=== PATIENT | female | born 1960 | race Caucasian/White ===

== ENCOUNTER → 2018-07-19 | Outpatient (CLI) | payer OTHER ==
[2014-03-18 10:29] VITALS: BP 132/84
[~2018-07-19] MED LIST: ASCO-78 PO; ASPI325T8 PO; ATEN25TA PO; CHOL400C2 PO; CINN500C2 PO; CIPR500T94 PO; CLOP75TA PO; CRAN200C2 PO; CRESTOR10 MG PO; DEXT15CA3 PO; FURO-69 PO; INSU100V13 SQ; INSU100V31 SQ; LISI2.5T PO; METR500T PO; NIAC500T9 PO; OMEG300C PO; OXYB5TAB PO; PSYL0.5215 PO; REGADENOSON 0.4 MG/5 ML DISP.SYRIN. IV ONE; VITA100T5 PO; [UNRECOGNIZED DRUG - OTHER] PO
--- NOTE | 2018-07-19 11:14 | CARD ---
MR#: [id number] Date of Study: 07/19/2018 Ordering Physician: CRISTI ORANTES, Referring Physician: CRISTI ORANTES Tech: Cheyenne Valle RDCS APPROVED REPORT EXAM: Two-dimensional and M-mode echocardiogram with Doppler and color Doppler. Other Information Quality : Fair INDICATION Cardiac Disease: CAD RISK FACTORS Smoking 2D DIMENSIONS RVDd2.3 (2.9-3.5cm)Left Atrium(2D)3.5 (1.6-4.0cm) IVSd1.0 (0.7-1.1cm)Aortic Root(2D)2.6 (2.0-3.7cm) LVDd4.7 (3.9-5.9cm)LVOT Diameter2.0 (1.8-2.4cm) PWd0.9 (0.7-1.1cm)LVDs2.7 (2.5-4.0cm) FS (%) 30.0 %SV76.0 ml LVEF(%)60.0 (>50%) Aortic Valve AoV Peak Vlad.134.4cm/sAoV VTI30.8cm AO Peak GR.7.2mmHgLVOT Peak Vlad.124.4cm/s LVOT VTI 27.62cmAO Mean GR.4mmHg JAMI (VMAX)2.56ne8BSL (VTI)2.87cm2 Mitral Valve MV E Jnzrffdf91.1cm/sMV DECEL FSDG687qy MV A Chzajakc970.7cm/sMV NTT10dc E/A Ratio0.9MVA (PHT)3.14cm2 TDI E/Lateral E'13.9E/Medial E'13.1 Tricuspid Valve TR P. Vhbzsnqc201pj/sRAP EMPHTOUG5fgNr TR Peak Gr.68haAdUQXZ91skEs Pulmonary Vein S1 Bwmlhakb01.0cm/sD2 Fpzdrjwk43.6cm/s LEFT VENTRICLE The left ventricle is normal size. There is normal left ventricular wall thickness. The left ventricu lar systolic function is normal and the ejection fraction is within normal range. The left ventricula r ejection fraction is 55-60%. There is normal LV segmental wall motion. Transmitral Doppler flow pat tern is Grade I-abnormal relaxation pattern. RIGHT VENTRICLE The right ventricle is normal size. The right ventricular systolic function is normal. ATRIA The left atrium size is normal. The right atrium size is normal. The interatrial septum is intact wit h no evidence for an atrial septal defect or patent foramen ovale as noted on 2-D or Doppler imaging. AORTIC VALVE The aortic valve is calcified but opens well. Doppler and Color Flow revealed no significant aortic r egurgitation. There is no significant aortic valvular stenosis. MITRAL VALVE The mitral valve is calcified but opens well. Mitral annular calcification is mild. There is no evide nce of mitral valve prolapse. There is no mitral valve stenosis. Doppler and Color-flow revealed trac e to mild mitral regurgitation. TRICUSPID VALVE The tricuspid valve is normal in structure and function. Doppler and Color Flow revealed trace tricus pid regurgitation. The PA pressure was estimated at 26 mmHg. There is no tricuspid valve prolapse or vegetation. There is no tricuspid valve stenosis. PULMONIC VALVE The pulmonic valve is not well visualized. Doppler and Color Flow revealed no pulmonic valvular regur gitation. There is no pulmonic valvular stenosis. GREAT VESSELS The aortic root is normal in size. The ascending aorta is not well seen. The IVC is normal in size an d collapses >50% with inspiration. PERICARDIAL EFFUSION There is no evidence of significant pericardial effusion. Critical Notification Critical Value: No <Conclusion> The left ventricle is normal size. The left ventricular systolic function is normal and the ejection fraction is within normal range. The left ventricular ejection fraction is 55-60%. There is normal left ventricular wall thickness. There is no significant aortic valvular stenosis. Doppler and Color Flow revealed no significant aortic regurgitation. Doppler and Color-flow revealed trace to mild mitral regurgitation. Doppler and Color Flow revealed trace tricuspid regurgitation. The PA pressure was estimated at 26 mmHg. Signed by : Ron Garduno MD Electronically Approved : 07/19/2018 11:14:14
--- NOTE | 2018-07-19 12:17 | RAD ---
MR#: [id number] Date of Study: 07/19/2018 Ordering Physician: CRISTI ORANTES Referring Physician: JYOTI CARTWRIGHT Tech: RT Dora Guerrero) (N) APPROVED REPORT Test Type: Pharmacological Stress Nurse/Tech: Aron BRAY Test Indications: CAD Cardiac History: DE in 2004 and 2010 with a total of 4 stents placed, HTN, See EMR Medications: ASA, See EMR Medical History: Renal Insf, Smoker for 40yrs, DM, See EMR Resting ECG: SR Resting Heart Rate: 69 bpm Resting Blood Pressure: 115/53mmHg Pretest Chest Pain: No chest pain Nurse/Tech Notes Lungs CTA, Heart tones regular Consent: The procedure was explained to the patient in lay terms. Informed consent was witnessed. Jamal eout was entered into [employer]. History and Stress Test performed by RT Dora Guerrero) (N) Pharm. Details Pharmacologic stress testing was performed using 0.4mg per 5ml of regadenoson given intravenously ove r 7-10 seconds. Stress Symptoms Dizziness POST EXERCISE Reason for Termination: Infusion complete Max HR: 95 bpm Max Blood Pressure: 102/37mmHg Blood Pressure response to exercise: Normal blood pressure response during stress. Chest Pain: No. Arrhythmia: No. ST Change: No. INTERPRETATION Stress EKG Conclusion: No evidence of stress induced EKG changes. Imaging Protocol IMAGE PROTOCOL: Rest Tc-99m/stress Tc-99m 1 day Rest: Stress: Viability: Radiopharm.Tc99m OhyitlcqwMw14k Sestamibi Dqkw53iRf 33mCi Duration 15min. 15min. Img Date 07/19/2018 07/19/2018 Inj-Img Qbhp62ndi. 60min. Rest Admin Site:IV - Left HandAdministrator:RT Dora Guerrero)(N) Stress Admin Site: IV - Left HandAdministrator: RT Dora Guerrero)(N) STRESS DATA End Diast. Vol.84.0mlAv. Heart Rate82.0bpm End Syst. Vol.17.0mlCO Index BSA0.0L/min Myocardial Ipyf749.0gEject. Wybjyjyf42.0% Stress Rates Pk. Fill Rate4.76EDV/secLVtime Pk. Fill 201.51msec Pk. Empty Rate4.74ESV/secLVtime Pk. Pctdp081.79msec 1/3 Pk. Fill1.53EDV/sec Stress Scores Regional WT0.00Summed WT2.00 Regional WM0.00Summed WM0.00 The rest and stress images show normal perfusion, normal contraction and thickening. LV Perf. Quant 17 Seg. SSS5.00 17 Seg. SRS5.00 17 Seg. SDS0.00 Stress Defect Extent (% LAD)14.40Rest Defect Extent (% LAD)18.10Rev. Defect Extent (% LAD)0.00 Stress Defect Extent (% LCX) 3.80Rest Defect Extent (% LCX)0.00Rev. Defect Extent (% LCX)0.00 Stress Defect Extent (% RCA)0.00Rest Defect Extent (% RCA)0.00Rev. Defect Extent (% RCA)0.00 Stress Defect Extent (% MARNIE)11.50Rest Defect Extent (% MARNIE)12.00Rev. Defect Extent (% MARNIE)0.00 Other Information Quality:Good Risk Assessment: Low Risk Conclusion 1. No evidence of EKG changes with stress testing. 2. Normal perfusion at stress/rest. There is a small fixed apical defect suggestive of prior infarct versus apical thinning. Correlate with history. No ischemia 3. Low risk study. 4. EF > 60%. Signed by : Nishant Sanchez, Electronically Approved : 07/19/2018 12:17:22
== END | disposition home or self-care (01) ==
LOC: ECHO 07:49
PROVIDERS: ATTEND Internal Medicine Cardiovascular Disease
DX: I08.0 Rheumatic disorders of both mitral and aortic valves (principal); I25.10 Atherosclerotic heart disease of native coronary artery without angina pectoris; I25.2 Old myocardial infarction; I10 Essential (primary) hypertension; E11.9 Type 2 diabetes mellitus without complications; R00.8 Other abnormalities of heart beat; Z87.891 Personal history of nicotine dependence
CPT/HCPCS: 78452; 93017; 93306; 96374; A9500; J2785

== ENCOUNTER 2018-12-28 09:11 | Emergency (ER) | payer OTHER ==
[~2018-12-28] VITALS: Ht 167.6 cm; Wt 81.6 kg
[~2018-12-28 09:11] MED LIST changes: -OXYB5TAB PO; +OXYB5TAB2 PO; -REGADENOSON 0.4 MG/5 ML DISP.SYRIN. IV ONE
--- NOTE | 2018-12-28 09:35 | PHYS DOC ---
Past Medical History Past Medical History: Diabetes-Type II, High Cholesterol, Hypertension, [place], Other Additional Past Medical Histor: narcolepsy, " have one kidney" Past Surgical History: Hysterectomy, Tonsillectomy, Other Additional Past Surgical Histo: 3 cardiac stents Alcohol Use: None Drug Use: None Adult General Chief Complaint Chief Complaint: BLOOD IN URINE [facility] HPI Patient is a 58-year-old female who presents to the emergency department for evaluation. She states that she has a large internal hemorrhoid, which has caused her to have some difficulty urinating at times. She states that she had been urinating at her normal state, until about 4 AM, she felt that she could not urinate, and then when she laid back down, "it all gushed out", stating that there was blood in urine that was coming from her urethra. She is fairly adamant that she is not having any vaginal bleeding=- she has had a hysterectomy. She does report some pressure and discomfort in her urethral area. She states that she had a traumatic injury to her urethra this past April when a catheter was placed. She has not been on any new medications. She does take Plavix, but no other anticoagulants. She denies any vomiting, bloody stools, dizziness or lightheadedness. Laying flat seems to worsen her symptoms. There are no alleviating factors to her symptoms. Review of Systems Review of Systems Constitutional: Denies fever or chills [] Eyes: Denies change in visual acuity, redness, or eye pain [] HENT: Denies nasal congestion or sore throat [] Respiratory: Denies cough or shortness of breath [] Cardiovascular:The patient denies any shortness of breath, chest pain, palpitations, or orthopnea [] GI: Denies nausea, vomiting, bloody stools or diarrhea [] : No additional information not addressed in HPI [] Musculoskeletal: Denies back pain or joint pain [] Integument: Denies rash or skin lesions [] Neurologic: Denies headache, focal weakness or sensory changes [] Endocrine: Denies polyuria or polydipsia [] All other systems were reviewed and found to be within normal limits, except as documented in this note. Current Medications Current Medications Current Medications Medications (Trade) Dose Ordered Sig/Saurav Start Time Stop Time Status Last Admin Dose Admin Ciprofloxacin/ Dextrose 200 ml @ 200 mls/hr 1X ONCE 12/28/18 12:00 12/28/18 12:59 DC 12/28/18 12:36 200 MLS/HR Info (CONTRAST GIVEN -- Rx MONITORING) 1 each PRN DAILY PRN 12/28/18 12:00 12/28/18 14:29 DC Iohexol (Omnipaque 300 Mg/ml) 75 ml 1X ONCE 12/28/18 12:00 12/28/18 12:01 DC 12/28/18 11:53 75 ML Sodium Chloride 1,000 ml @ 1,000 mls/hr 1X ONCE 12/28/18 12:00 12/28/18 12:59 DC 12/28/18 12:15 1,000 MLS/HR Allergies Allergies Allergies Coded Allergies Type Severity Reaction Last Updated Verified Sulfa (Sulfonamide Antibiotics) Allergy Severe hives, shortness of breath 03/15/14 No diphenhydramine Allergy Severe respiratory distress 03/15/14 No cephalexin Allergy Intermediate hives 03/15/14 No Physical Exam Physical Exam PHYSICAL EXAM: CONSTITUTIONAL: Well developed, well nourished HEAD: normocephalic, atraumatic EENT: PERRL, EOMI. Conjunctivae normal color, sclerae non-icteric; moist mucous membranes. NECK: Supple, non-tender; no meningismus. LUNGS: Lungs CTA, breathing even and unlabored. Normal air movement. HEART: Regular rate and rhythm, no murmur CHEST: No deformity; non-tender ABDOMEN: The abdomen is soft, there is fullness and tenderness to palpation in the suprapubic area, possibly suggestive of bladder distention, the remainder the abdomen is soft and non-tender, no masses or bruits. EXTREM: Normal ROM; no deformity, no calf tenderness. Normal pulses palpable in all extremities. There is no pedal edema. SKIN: No rash; no diaphoresis NEURO: Alert; normal speech and cognition; CN's grossly intact; strength grossly intact without focal deficit. BACK: No CVA TTP. . PSYCHIATRIC: Moderately anxious affect. GENITOURINARY: Normal external genitalia. The urethral meatus appears unremarkable, there is a small amount of reddish fluid, possibly black or bloody urine, in the vaginal introitus, without any obvious vaginal bleeding. Current Patient Data Vital Signs Vital Signs Date Time Temp Pulse Resp B/P (MAP) Pulse Ox O2 Delivery O2 Flow Rate FiO2 12/28/18 11:30 86 121/63 (82) 95 Room Air 12/28/18 09:24 97.9 24 97.9 Lab Values Laboratory Tests Test 12/28/18 10:30 White Blood Count 11.7 x10^3/uL (4.0-11.0) H Red Blood Count 4.32 x10^6/uL (3.50-5.40) Hemoglobin 13.5 g/dL (12.0-15.5) Hematocrit 39.6 % (36.0-47.0) Mean Corpuscular Volume 92 fL (79-100) Mean Corpuscular Hemoglobin 31 pg (25-35) Mean Corpuscular Hemoglobin Concent 34 g/dL (31-37) Red Cell Distribution Width 14.0 % (11.5-14.5) Platelet Count 203 x10^3/uL (140-400) Neutrophils (%) (Auto) 85 % (31-73) H Lymphocytes (%) (Auto) 10 % (24-48) L Monocytes (%) (Auto) 5 % (0-9) Eosinophils (%) (Auto) 0 % (0-3) Basophils (%) (Auto) 0 % (0-3) Neutrophils # (Auto) 9.9 x10^3/uL (1.8-7.7) H Lymphocytes # (Auto) 1.1 x10^3/uL (1.0-4.8) Monocytes # (Auto) 0.6 x10^3/uL (0.0-1.1) Eosinophils # (Auto) 0.0 x10^3/uL (0.0-0.7) Basophils # (Auto) 0.0 x10^3/uL (0.0-0.2) Prothrombin Time 13.7 SEC (11.7-14.0) Prothrombin Time INR 1.1 (0.8-1.1) Urine Collection Type U cath Urine Color Red Urine Clarity Turbid Urine pH 5.0 Urine Specific [place] 1.025 Urine Protein mg/dL (NEG-TRACE) Urine Glucose (UA) mg/dL (NEG) Urine Ketones (Stick) mg/dL (NEG) Urine Blood (NEG) Urine Nitrite (NEG) Urine Bilirubin (NEG) Urine Urobilinogen Dipstick mg/dL (0.2 mg/dL) Urine Leukocyte Esterase (NEG) Urine RBC Tntc /HPF (0-2) Urine WBC Tntc /HPF (0-4) Urine Bacteria Fobs /HPF (0-FEW) Sodium Level 140 mmol/L (136-145) Potassium Level 3.8 mmol/L (3.5-5.1) Chloride Level 104 mmol/L (98-107) Carbon Dioxide Level 26 mmol/L (21-32) Anion Gap 10 (6-14) Blood Urea Nitrogen 20 mg/dL (7-20) Creatinine 0.8 mg/dL (0.6-1.0) Estimated GFR (Cockcroft-Gault) 73.2 Glucose Level 170 mg/dL (70-99) H Calcium Level 8.8 mg/dL (8.5-10.1) Laboratory Tests 12/28/18 10:30 Laboratory Tests 12/28/18 10:30 EKG EKG [] Normal sinus rhythm at a rate of 93 bpm, left axis deviation, normal intervals. Nonspecific ST/T changes. Radiology/Procedures Radiology/Procedures [PROCEDURE: CT ABDOMEN PELVIS WO/W Examination: CT ABDOMEN PELVIS WO/W History: Hematuria Comparison/Correlation: 03/07/2014 CT abdomen and pelvis with contrast Findings: Axial images of the abdomen and pelvis were obtained prior to and following IV contrast according to urogram protocol. 3-D volume rendered MIP images were provided. Sagittal and coronal reformatted images were provided. Visualized lung bases are clear. Liver, spleen, pancreas and right adrenal gland are unremarkable. Sludge is noted within the gallbladder. Underlying calculus involvement is not excluded however. Absence of the right kidney is noted. Nodular appearance of the left adrenal gland is unchanged likely representing benign adenomatous involvement. Left renal cysts are present but appears to be vascular in distribution. There is no left hydronephrosis. Normal perfusion of the kidneys noted. Excretion of contrast by the left kidney is unremarkable. Opacification of the left collecting system is most unremarkable. There is there is no significant opacification of the left ureter at the superior sacral level. No hydronephrosis identified. Trevino catheter is present within the urinary bladder. High density within the urinary bladder on the precontrast images presumably representing hemorrhage is noted. Correlate with recent prior contrast administration alternatively. Stranding about the urinary bladder is noted. Small umbilical hernia contains omental fat. Visualized bowel is unremarkable. Marked calcification involvement of the abdominal aorta is noted. Calcific involvement of the proximal left main renal artery identified. Bony structures are unremarkable for patient's age. Impression: High density within the urinary bladder which presumably represents hemorrhage. Evaluation for mass lesions limited as a result. Surrounding stranding raises question of cystitis. Left collecting system is grossly unremarkable although it is not fully opacified at the sacral level. ] Course & Med Decision Making Course & Med Decision Making Pertinent Labs and Imaging studies reviewed. (See chart for details) []10:20 AM: A Trevino catheter was placed, with drainage of a large amount of grossly bloody urine. 1:25 PM:Patient remains stable. I discussed test results, the need for close follow-up, and return precautions. The importance of close urology follow-up was stressed. Differential considerations were discussed in detail with the patient, including the possibility of urinary tract infection/cystitis causing hematuria, or and the possibility of malignancy which will need to be ruled out. Pt has o Sx of urinary retention and trevino will be removed. Dragon Disclaimer Dragon Disclaimer This electronic medical record was generated, in whole or in part, using a voice recognition dictation system. Departure Departure Impression: Primary Impression: Hematuria Additional Impression: Cystitis Disposition: 01 HOME, SELF-CARE Condition: STABLE Referrals: DELBERT GARCIA (PCP) JILL MONTEIRO MD Patient Instructions: Hematuria, Adult, Urinary Tract Infection Scripts Ciprofloxacin Hcl (CIPRO) 500 Mg Tablet 1 TAB PO BID, #14 TAB Prov: JOSEPH MONAHAN MD 12/28/18 Problem Qualifiers JOSEPH MONAHAN MD Dec 28, 2018 09:35
[2018-12-28 10:52] LABS: BASO % 0 % (0-3); EOS % 0 % (0-3); HEMATOCRIT 39.6 % (36.0-47.0); HEMOGLOBIN 13.5 g/dL (12.0-15.5); LYMPH # 1.1 x10^3/uL (1.0-4.8); LYMPH % 10 % (24-48); MEAN CORPUSCULAR HEMOGLOBIN 31 pg (25-35); MEAN CORPUSCULAR HGB CONC 34 g/dL (31-37); MEAN CORPUSCULAR VOLUME 92 fL (79-100); MONO # 0.6 x10^3/uL (0.0-1.1); MONO % 5 % (0-9); NEUT # 9.9 x10^3/uL (1.8-7.7); NEUT % 85 % (31-73); PLATELET COUNT 203 x10^3/uL (140-400); RED BLOOD COUNT 4.32 x10^6/uL (3.50-5.40); WHITE BLOOD COUNT 11.7 x10^3/uL (4.0-11.0)
[2018-12-28 10:54] LABS: CLARITY,URINE TURBID; COLOR,URINE RED
[2018-12-28 11:01] LABS: RBC,URINE TNTC /HPF (0-2)
[2018-12-28 11:03] LABS: WBC,URINE TNTC /HPF (0-4)
[2018-12-28 11:04] LABS: BACTERIA,URINE FOBS /HPF (0-FEW)
--- NOTE | 2018-12-28 11:07 | EKG ---
[facility] [address] [place] [address] Test Date: 2018-12-28 Test Time: 10:25:06 Pat Name: LOUANN MAURO Department: Room: Gender: F Press Brake Operator: : 1960 Requested By: JOSEPH MONAHAN Order Number: [id number] Reading MD: Measurements Intervals Flanagan Rate: 93 P: 34 ND: 138 QRS: -28 QRSD: 88 T: 52 QT: 360 QTc: 450 Interpretive Statements SINUS RHYTHM LEFTWARD AXIS QRS(T) CONTOUR ABNORMALITY CONSISTENT WITH ANTEROSEPTAL INFARCT AGE UNDETERMINED CONSIDER INFERIOR INFARCT ABNORMAL ECG No previous ECG available for comparison
[2018-12-28 11:12] LABS: PROTHROMBIN TIME PATIENT 13.7 SEC (11.7-14.0)
[2018-12-28 11:24] LABS: CALCIUM 8.8 mg/dL (8.5-10.1); CREATININE 0.8 mg/dL (0.6-1.0); GFR 73.2; POTASSIUM 3.8 mmol/L (3.5-5.1)
[2018-12-28 11:30] VITALS: BP 121/63
[2018-12-28] MEDS ORDERED: IOHEXOL 300 MG/ML 100ML VIAL. IV ONE (12:00)
[2018-12-28] MEDS ORDERED: IV NORMAL SALINE 1000ML BAG 1,000 ML IV ONE (12:00)
[2018-12-28] MEDS ORDERED: CIPROFLOXACIN 400MG PREMIX 200 ML IV ONE (12:00)
[2018-12-28] MEDS ORDERED: CONTRAST GIVEN. MC PRN (12:00)
--- NOTE | 2018-12-28 13:13 | RAD ---
Examination: CT ABDOMEN PELVIS WO/W History: Hematuria Comparison/Correlation: 03/07/2014 CT abdomen and pelvis with contrast Findings: Axial images of the abdomen and pelvis were obtained prior to and following IV contrast according to urogram protocol. 3-D volume rendered MIP images were provided. Sagittal and coronal reformatted images were provided. Visualized lung bases are clear. Liver, spleen, pancreas and right adrenal gland are unremarkable. Sludge is noted within the gallbladder. Underlying calculus involvement is not excluded however. Absence of the right kidney is noted. Nodular appearance of the left adrenal gland is unchanged likely representing benign adenomatous involvement. Left renal cysts are present but appears to be vascular in distribution. There is no left hydronephrosis. Normal perfusion of the kidneys noted. Excretion of contrast by the left kidney is unremarkable. Opacification of the left collecting system is most unremarkable. There is there is no significant opacification of the left ureter at the superior sacral level. No hydronephrosis identified. Rangel catheter is present within the urinary bladder. High density within the urinary bladder on the precontrast images presumably representing hemorrhage is noted. Correlate with recent prior contrast administration alternatively. Stranding about the urinary bladder is noted. Small umbilical hernia contains omental fat. Visualized bowel is unremarkable. Marked calcification involvement of the abdominal aorta is noted. Calcific involvement of the proximal left main renal artery identified. Bony structures are unremarkable for patient's age. Impression: High density within the urinary bladder which presumably represents hemorrhage. Evaluation for mass lesions limited as a result. Surrounding stranding raises question of cystitis. Left collecting system is grossly unremarkable although it is not fully opacified at the sacral level. PQRS Compliance Statement: One or more of the following individualized dose reduction techniques were utilized for this examination: 1. Automated exposure control 2. Adjustment of the mA and/or kV according to patient size 3. Use of iterative reconstruction technique Electronically signed by: Livan Galarza MD (12/28/2018 1:10 PM) [facility]
[2018-12-28] MEDS ORDERED: CIPR500T94 PO (13:29)
== END 2018-12-28 14:12 | disposition home or self-care (01) ==
LOC: ER 09:11
DX: N30.91 Cystitis, unspecified with hematuria (principal); E78.00 Pure hypercholesterolemia, unspecified; I10 Essential (primary) hypertension; E11.9 Type 2 diabetes mellitus without complications; I25.2 Old myocardial infarction; Z90.710 Acquired absence of both cervix and uterus; Z95.5 Presence of coronary angioplasty implant and graft; Z88.2 Allergy status to sulfonamides; Z88.1 Allergy status to other antibiotic agents; Z88.5 Allergy status to narcotic agent
CPT/HCPCS: 36415; 51702; 74178; 80048; 81001; 85025; 85610; 93005; 96365; 99285; J0744; J7030; Q9967

== ENCOUNTER → 2019-02-23 | Outpatient (CLI) | payer OTHER ==
[~2019-02-23] MED LIST changes: +ASPI81TA50 PO; +DEXT15CA PO; -DEXT15CA3 PO; +INSU100V6 SQ
--- NOTE | 2019-02-23 11:45 | RAD ---
MR#: [id number] Date of Study: 02/23/2019 Ordering Physician: CRISTI ORANTES, Referring Physician: CRISTI ORANTES, Tech: Yahaira Figueroa RVT,SACHA APPROVED REPORT Patient Location: OUT-PATIENT Laterality:Bilateral Indications Bruit Risk Factors Hypertension: Smoking Doppler Spectral Velocity Analysis Right Left pCCA 79/21 cm/spCCA 76/9 cm/s mCCA 73/22 cm/smCCA 81/9 cm/s dCCA 74/23 cm/sdCCA 66/10 cm/s Bulb 437/178 cm/sBulb ECA 104/12 cm/sECA 129/18 cm/s pICA 377/127 cm/spICA Sheron 137/70 cm/smICA dICA 139/68 cm/sdICA Vert. 89/29 cm/sVert. 52/12 cm/s ICA/CCA 4.77ICA/CCA Findings Grayscale images of the bilateral common carotid, external and internal carotid vessels demonstrate d iffuse moderate plaque. On the right there is likely a greater than 70% stenosis involving the proximal and distal internal c arotid artery based on velocity criteria. The left internal carotid artery is occluded. Bilateral vertebral velocities are antegrade. Bilateral external carotid arteries are within normal limits Critical Notification Critical Value: No <Conclusion> 1. Severe greater than 70% stenosis involving the right guarded bulb/internal carotid artery 2. Occluded left internal carotid artery Signed by : Nishant Sanchez, Electronically Approved : 02/23/2019 11:44:50
== END | disposition home or self-care (01) ==
LOC: US 07:14
PROVIDERS: ATTEND Internal Medicine Cardiovascular Disease
DX: I65.23 Occlusion and stenosis of bilateral carotid arteries (principal)
CPT/HCPCS: 93880